=== PATIENT | male | born 1960 | race Caucasian/White ===

== ENCOUNTER 2021-09-11 15:26 | Observation (INO) | payer MEDICARE, OTHER ==
[~2021-09-11] VITALS: Ht 182.9 cm; Wt 124.7 kg
[~2021-09-11 15:26] MED LIST: ALL DAY ALLERGY10 M2 PO; ASPIRIN325 MG PO; CYCLOBENZAPRINE10 MG PO; HYDROCODON-ACE1 EAC5 PO; ONDANSETRON ODT8 MG PO; SENNA PLUS TAB1 EACH PO; TENORMIN25 MG PO; VALPROIC ACID250 MG PO; VOLTAREN100 GM TP; WELLBUTRIN SR150 MG PO; ZOCOR 40 MG TAB40 MG PO
[2021-09-11 16:56] LABS: HEMOGLOBIN 12.4 gm/dl (14.0-17.5); RED BLOOD COUNT 3.88 M/UL (4.20-5.50); WHITE BLOOD COUNT 8.8 K/UL (4.5-11.0)
[2021-09-11 17:25] LABS: BUN/CREATININE RATIO 21 (0-10)
[2021-09-12 04:28] LABS: HEMOGLOBIN 11.3 gm/dl (14.0-17.5); RED BLOOD COUNT 3.56 M/UL (4.20-5.50); WHITE BLOOD COUNT 7.8 K/UL (4.5-11.0)
[2021-09-12 04:50] LABS: BUN/CREATININE RATIO 20 (0-10)
[2021-09-12] MEDS ORDERED: ASPIRIN EC81 MG PO (12:52)
[2021-09-12] MEDS ORDERED: GABAPENTIN300 MG PO (14:10)
[2021-09-12] MEDS ORDERED: NITROSTAT0.4 MG SL (14:11)
[2021-09-12] MEDS ORDERED: GLUCOSE BITS1 GM PO (14:14)
[2021-09-12] MEDS ORDERED: ISOSORBIDE MONO30 MG PO (16:49)
== END 2021-09-12 19:39 | disposition home or self-care (01) ==
LOC: ER1 15:26 → CDU 18:10 → PROG CARE 09-12 08:42
PROVIDERS: Physician Assistant; ADMIT Internal Medicine
DX: I20.0 Unstable angina (principal); E11.9 Type 2 diabetes mellitus without complications; I10 Essential (primary) hypertension; E78.5 Hyperlipidemia, unspecified; G40.909 Epilepsy, unspecified, not intractable, without status epilepticus; G47.33 Obstructive sleep apnea (adult) (pediatric); E66.9 Obesity, unspecified; R06.02 Shortness of breath; R11.0 Nausea; R20.2 Paresthesia of skin; Z86.73 Personal history of transient ischemic attack (TIA), and cerebral infarction without residual deficits; Z79.82 Long term (current) use of aspirin; Z98.61 Coronary angioplasty status; Z88.5 Allergy status to narcotic agent; Z88.8 Allergy status to other drugs, medicaments and biological substances; Z87.891 Personal history of nicotine dependence; Z20.822 Contact with and (suspected) exposure to COVID-19
CPT/HCPCS: ECHO; 70450; 71045; 78452; 80048; 80053; 82550; 82553; 82962; 83690; 83874; 84484; 85025; 93005; 93017; 93306; 99285; A9502; G0378; J2785; U0002